=== PATIENT | male | born 1970 | race Caucasian/White ===

== ENCOUNTER 2018-09-25 04:07 | Emergency (ER) | payer SELFPAY ==
[2018-09-25] MEDS: ONDANSETRON 4 MG INJ IV (04:36)
[2018-09-25] MEDS: LACTATED RINGER'S 1,000 ML IV (04:36)
[2018-09-25] MEDS: morphine 4 MG/ML VIAL IV ×2 (04:36→06:02)
[2018-09-25] MEDS: LIDOCAINE 1% (MDV) 20 ML INJ SC (04:49)
[2018-09-25] MEDS: BACITRACIN 0.5%/ZINC 28.35 GM OINT TOP (06:07)
== END 2018-09-25 07:03 | disposition home or self-care (01) ==
LOC: E/R 04:07
DX: S01.111A Laceration without foreign body of right eyelid and periocular area, initial encounter (principal); S01.112A Laceration without foreign body of left eyelid and periocular area, initial encounter; R40.2142 Coma scale, eyes open, spontaneous, at arrival to emergency department; R40.2362 Coma scale, best motor response, obeys commands, at arrival to emergency department; R40.2252 Coma scale, best verbal response, oriented, at arrival to emergency department; Y04.2XXA Assault by strike against or bumped into by another person, initial encounter
CPT/HCPCS: 12014; 70450; 70486; 96361; 96374; 96375; 99285-25